=== PATIENT | female | born 1980 | race Caucasian/White ===

== ENCOUNTER 2020-12-24 08:34 | Outpatient (REF) | payer MEDICAID, SELFPAY ==
[2020-12-24 14:08] LABS: HCT 42.7 % (36.0-46.0); MCH 27.8 pg (27.0-33.0); MCHC 32.8 % (32.0-36.0); MCV 84.9 fL (80-95); MPV 10.5 fL (8.0-11.0); Platelet Count 254 10^3/uL (130-400); RBC 5.03 10^6/uL (3.93-5.22); RDW 12.4 % (11.7-14.6); RDW-SD 38.1 fL; WBC 5.88 10^3/uL (4.4-10.8)
[2020-12-24 14:29] LABS: ALT 34 U/L (14-59); AST 21 U/L (15-37); Albumin 3.9 g/dL (3.4-5.0); Alkaline Phosphatase 72 U/L (46-116); Anion Gap 7.3 mmol/L (3-11); BUN 12 mg/dL (7-18); Bilirubin, Total 0.5 mg/dL (0.2-1.0); CO2 27.7 mmol/L (21.0-32.0); CREATININE 0.7 mg/dL (0.55-1.02); Calcium 9.1 mg/dL (8.5-10.1); Calculated LDL 120 mg/dL (<100); Chloride 105 mmol/L (98-107); Cholesterol 188 mg/dL (<200); Glucose 92 mg/dL (74-106); HDL Cholesterol 53 mg/dL (40-60); Sodium 140 mmol/L (136-145); TSH 1.37 uIU/mL (0.36-3.74); Total Protein 7.5 g/dL (6.4-8.2); Triglyceride 77 mg/dL (<150)
[2020-12-24 14:42] LABS: Hemoglobin A1C 5.7 % (<5.7)
[2020-12-27 06:11] LABS: Vitamin D 25 Total 39.4 ng/mL (30-100)
== END 2020-12-24 08:35 | disposition home or self-care (01) ==
LOC: NCHCN 08:34
PROVIDERS: PCP Registered Nurse; Visit Provider Registered Nurse
DX: R53.83 Other fatigue (principal); R63.5 Abnormal weight gain; Z00.00 Encounter for general adult medical examination without abnormal findings; Z83.3 Family history of diabetes mellitus
CPT/HCPCS: 80053; 80061; 82306; 85027; 83036; 84443

== ENCOUNTER 2021-06-30 09:27 | Outpatient (REF) | payer MEDICAID, SELFPAY ==
[2021-06-30 18:11] LABS: Hemoglobin A1C 5.4 % (<5.7)
[2021-07-02 10:08] LABS: HIV-1/2 Ag & Ab Screen Negative (Negative)
[2021-07-02 13:46] LABS: Chlamydia Result Negative (Negative); GC Result Negative (Negative)
== END 2021-06-30 09:28 | disposition home or self-care (01) ==
LOC: NCHCN 09:27
PROVIDERS: PCP Registered Nurse; Visit Provider Registered Nurse
DX: R73.03 Prediabetes (principal); Z11.3 Encounter for screening for infections with a predominantly sexual mode of transmission; Z11.4 Encounter for screening for human immunodeficiency virus [HIV]
CPT/HCPCS: 87389; 87491; 87591; 83036

== ENCOUNTER 2021-08-03 14:11 | Outpatient (REF) | payer MEDICAID, SELFPAY ==
[2021-08-05 15:11] LABS: Chlamydia Result Negative (Negative); GC Result Negative (Negative)
== END 2021-08-03 14:12 | disposition home or self-care (01) ==
LOC: NCHCN 14:11
PROVIDERS: PCP Registered Nurse; Visit Provider Registered Nurse
DX: Z11.3 Encounter for screening for infections with a predominantly sexual mode of transmission (principal)
CPT/HCPCS: 87491; 87591

== ENCOUNTER 2021-12-21 16:13 | Outpatient (REF) | payer MEDICAID, SELFPAY ==
[2021-12-23 10:08] LABS: Hepatitis C Ab w Rflx HCV PCR Negative (Negative)
[2021-12-23 10:18] LABS: Syphilis Serology (RPR) Negative (Negative)
[2021-12-23 10:24] LABS: HIV-1/2 Ag & Ab Screen Negative (Negative)
[2021-12-23 15:39] LABS: Chlamydia Result Negative (Negative); GC Result Negative (Negative)
== END 2021-12-21 16:14 | disposition home or self-care (01) ==
LOC: NCHCN 16:13
PROVIDERS: PCP Registered Nurse; Visit Provider Registered Nurse
DX: Z11.3 Encounter for screening for infections with a predominantly sexual mode of transmission (principal)
CPT/HCPCS: 86803; 87389; 87491; 87591; 86592

== ENCOUNTER 2022-02-15 08:59 | Outpatient (REF) | payer MEDICAID, SELFPAY ==
--- NOTE | 2022-02-15 08:00 | PAPFT_PTH ---
PATIENT: Bing Loving LOC: [facility]#:[id number] AGE/SX: 41/F ROOM: RE02/15/[address]: Ro Alan : 1980 BED: DIS: 02/15/2022 SPEC #: [id number] RECD: 02/15/22 18:38 STATUS: REINALDO REQ #: [id number] ANJEL: 02/15/22 08:[address]: Ro Alan DEPT: [facility] Cytology RECD BY: Anne Seo Tissues: 1 - CX/ENDOCX FOR PAP SMEARS Procedures: PAP THIN PREP/[facility] Screening HPV DNA PROBE Comments: [id number] (CHLAMYDIA/GC)
[2022-02-16 17:37] LABS: Chlamydia Result Negative (Negative); GC Result Negative (Negative)
== END 2022-02-15 09:00 | disposition home or self-care (01) ==
LOC: NCHCN 08:59
PROVIDERS: PCP Registered Nurse; Visit Provider Registered Nurse
DX: Z12.4 Encounter for screening for malignant neoplasm of cervix (principal); Z11.3 Encounter for screening for infections with a predominantly sexual mode of transmission; Z11.51 Encounter for screening for human papillomavirus (HPV)
CPT/HCPCS: 87491; 87591; 88142; 87624

== ENCOUNTER 2023-03-13 21:06 | Outpatient (REF) | payer MEDICAID, SELFPAY ==
[2023-03-13 21:40] LABS: Anion Gap 7.4 mmol/L (3-11); BUN 13 mg/dL (7-18); CO2 28.6 mmol/L (21.0-32.0); CREATININE 0.7 mg/dL (0.55-1.02); Calcium 8.9 mg/dL (8.5-10.1); Chloride 103 mmol/L (98-107); Glucose 84 mg/dL (74-106); Potassium 3.6 mmol/L (3.5-5.1); Sodium 139 mmol/L (136-145)
[2023-03-13 21:53] LABS: Hemoglobin A1C 5.2 % (<5.7)
[2023-03-14 19:38] LABS: Hepatitis C Ab w Rflx HCV PCR Negative (Negative)
[2023-03-14 19:43] LABS: HIV-1/2 Ag & Ab Screen Negative (Negative)
[2023-03-15 10:07] LABS: Syphilis Serology (RPR) Negative (Negative)
[2023-03-16 14:00] LABS: Chlamydia Result Negative (Negative); GC Result Negative (Negative)
== END 2023-03-13 21:07 | disposition home or self-care (01) ==
LOC: NCHCN 21:06
PROVIDERS: Visit Provider Family Medicine
DX: R73.03 Prediabetes (principal); Z11.3 Encounter for screening for infections with a predominantly sexual mode of transmission; Z11.4 Encounter for screening for human immunodeficiency virus [HIV]; Z11.59 Encounter for screening for other viral diseases
CPT/HCPCS: 80048; 86803; 87389; 87491; 87591; 83036; 86592

== ENCOUNTER 2024-12-31 14:29 | Outpatient (REF) | payer MEDICAID, SELFPAY ==
[2024-12-31 21:56] LABS: Calculated LDL 115 mg/dL (<100); Cholesterol 199 mg/dL (<200); HDL Cholesterol 74 mg/dL (>or=50); TSH (W/Ref FT4) 1.81 uIU/mL (0.36-3.74); Triglyceride 52 mg/dL (<150)
== END 2024-12-31 14:30 | disposition home or self-care (01) ==
LOC: NCHCN 14:29
PROVIDERS: Visit Provider Family Medicine
DX: Z13.220 Encounter for screening for lipoid disorders (principal); Z13.29 Encounter for screening for other suspected endocrine disorder
CPT/HCPCS: 80061; 84443